=== PATIENT | male | born 1960 | race Caucasian/White ===

== ENCOUNTER 2017-02-04 06:03 | Day surgery (SDC) | payer MEDICAID ==
[~2017-02-04] VITALS: Ht 172.7 cm; Wt 87.3 kg
[~2017-02-04 06:03] MED LIST: SODIUM CHLORIDE 0.9% 1,000 ML IV ONE
[2017-02-04] MEDS ORDERED: SODIUM CHLORIDE 0.9% 1,000 ML IV ONE (06:22)
[2017-02-04] MEDS ORDERED: PANT40TA25 PO (06:46)
[2017-02-04] MEDS ORDERED: APIX5TAB PO (06:46)
[2017-02-04] MEDS ORDERED: GUAI-787 PO (06:46)
[2017-02-04] MEDS ORDERED: DIGO125T87 PO (06:46)
[2017-02-04] MEDS ORDERED: OLOP2.5D OU (06:46)
[2017-02-04] MEDS ORDERED: CYCL05OE OU (06:46)
[2017-02-04] MEDS ORDERED: FISH1CAP27 PO (06:46)
[2017-02-04] MEDS ORDERED: ASCO500T9 PO (06:46)
[2017-02-04] MEDS ORDERED: TIOT4MIS2 IH (06:46)
[2017-02-04] MEDS ORDERED: MOME17N NASAL (06:46)
[2017-02-04] MEDS ORDERED: LEVO112T4 PO (06:46)
[2017-02-04] MEDS ORDERED: DILT180C3 PO (06:46)
[2017-02-04] MEDS ORDERED: FLUT16H NASAL (06:46)
[2017-02-04] MEDS ORDERED: MOME13HF IH (06:46)
[2017-02-04] MEDS ORDERED: TORS20 PO (06:46)
[2017-02-04] MEDS ORDERED: SODIUM CHLORIDE 0.9% 500 ML IV ONE (07:15)
[2017-02-04] MEDS ORDERED: FentaNYL CITRATE-PF 100 MCG/2 ML VIAL ONE (07:31)
[2017-02-04] MEDS ORDERED: MIDAZOLAM HCL 2 MG/2 ML VIAL ONE (07:31)
[2017-02-04] MEDS ORDERED: MethylPREDNISolone SOD SUCC 125 MG/2 ML VIAL IVP ONE (09:00)
[2017-02-04] MEDS ORDERED: MethylPREDNISolone SOD SUCC 125 MG/2 ML VIAL ONE (09:06)
[2017-02-04] MEDS ORDERED: ALBUTEROL SULFATE 2.5 MG/0.5 ML NEB SOLUTION NEB ONE (18:21)
[2017-02-04] MEDS ORDERED: BENZOCAINE 20% 50 MCG/SPRAY 57 GM TP ONE (18:21)
[2017-02-04] MEDS ORDERED: LIDOCAINE HCL 2% 30 ML JELLY TP ONE (18:21)
[2017-02-04] MEDS ORDERED: OXYGEN THERAPY IH SCH (20:00)
== END 2017-02-04 10:20 | disposition home or self-care (01) ==
LOC: SURGERY 06:03
PROVIDERS: ATTEND Internal Medicine Critical Care Medicine
DX: J38.4 Edema of larynx (principal); B37.0 Candidal stomatitis; I48.91 Unspecified atrial fibrillation; J45.909 Unspecified asthma, uncomplicated; C81.90 Hodgkin lymphoma, unspecified, unspecified site; K21.9 Gastro-esophageal reflux disease without esophagitis; I10 Essential (primary) hypertension; Z88.2 Allergy status to sulfonamides; Z88.8 Allergy status to other drugs, medicaments and biological substances; Z91.018 Allergy to other foods; Z72.89 Other problems related to lifestyle; Z98.890 Other specified postprocedural states; Z86.73 Personal history of transient ischemic attack (TIA), and cerebral infarction without residual deficits
CPT/HCPCS: 31623; 31624; 71010; 87015 ×2; 87070; 87101; 87147; 87205; 87220; 88108; 88305; 88312; 93005; J2250; J2930; J3010; J7030